=== PATIENT | male | born 1945 | race Caucasian/White ===

== ENCOUNTER 2017-04-20 14:37 | Outpatient (RCR) | payer MEDICARE ==
[2017-04-20 09:03] VITALS: BMI 40.1
[~2017-04-20 14:37] MED LIST: ASPI81TA86 PO; ATOR20TA22 PO; CEFU250T11 PO; CHOL100052 PO; DULERAPT INH; FERR159T PO; FLUT16SP19 NS; FURO-45 PO; GABA-490 PO; GABA-549 PO; IBUP-56 PO; IPRA3AMP10 IH; LOSA50TA74 PO; LOVAZA1PT GT; MONT10TA4 PO; OMEP-218 PO; PENT400T57 PO; POTA-23 PO; POTA20TA94 PO; PRED-1 PO; PREDNISONE; ROPI5TAB20 PO; TAMS0.4C70 PO; ZITHROMAX
[2017-04-24] MEDS ORDERED: LEVO750T44 PO (11:19)
--- NOTE | 2017-04-25 14:10 | Transitional Care Management ---
Assessment Visit Type: Telephone Visit Spoke with: janessa Albright and Jv were in the background on speaker phone Respiratory: WNL Except Respiratory Comment: 04/25 Has O2 on, used bipap last pm, hasn't smoked since arrival home GI: Nutrition: WNL GI Comment: 04/25 "eating l davina a pig" Musculoskeletal, Exercise: WNL Musculoskeletal, Excercise Com: 04/25 wnl for pt Feeling of Well Being: WNL Feeling of Well Being Comment: 04/25 feels great to be home, reports feeling safe at home Scheduled Follow-Up with Chhayai: No (04/25 will call to schedule with Felipa) Community Resources/HHC: 04/25 no HHC available in [facility] Questions for Future PCP Visit: 04/25 results of echo, review that ventricular contraction is weker. he states "its just on a break". reinforced that if it takes a break too long that no work gets done. stress importance of taking resp meds to reduce workload of heart. wanted to use benadryl; suggest melatonin if ok with PCP TCM Discharge Criteria Medication Knowledge: 04/25 using medplanner to assist with tapering prednisone dose; verbalized 2 tab for 3 days then daily for 3 days. has atb. 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 His mobility is quite limited due to SOB and weakness. COPD instructions given (not the book) States he sees Felipa parisi 3 mos and has a city designer from [facility].Review pursed lip breathing for SOB. 04/25 using IS, Bipap and not smoking, taking new meds as rx. denies questions. feels safe and able to report if getting in trouble. has support of family at home Copies to: FELIPA ABURTO GENEVA E Apr 25, 2017 14:10
--- NOTE | 2017-05-01 15:36 | Transitional Care Management ---
Assessment Visit Type: Telephone Visit (05/01 Natalee) Respiratory: WNL Except Respiratory Comment: 04/25 Has O2 on, used bipap last pm, hasn't smoked since arrival home 05/01 Doing Ok still no smoking and using BiPap part of the noc. GI: Nutrition: WNL GI Comment: 04/25 "eating l davina a pig" 05/01 Eating good in fact really good" Constipation?: No Musculoskeletal, Exercise: WNL Musculoskeletal, Excercise Com: 04/25 wnl for pt 05/01 WNL bed to scooter to bed. He gets upset if you try to change that Feeling of Well Being: WNL Feeling of Well Being Comment: 04/25 feels great to be home, reports feeling safe at home 05/01Daughter is moving them to [place] to live with her on Monday as the family feel it is to much work and lifting for her to handle.It is going to be difficult as we have lived here in [place] for 20 some years! Scheduled Follow-Up with Sherry: Yes (05/01 to see Felipa on 05/04 and then they will get a Dr in [place].) Community Resources/HHC: 04/25 no HHC available in [facility] Questions for Future PCP Visit: 04/25 results of echo, review that ventricular contraction is weker. he states "its just on a break". reinforced that if it takes a break too long that no work gets done. stress importance of taking resp meds to reduce workload of heart. wanted to use benadryl; suggest melatonin if ok with PCP TCM Discharge Criteria Medication Knowledge: 04/25 using medplanner to assist with tapering prednisone dose; verbalized 2 tab for 3 days then daily for 3 days. has atb. wanted benadryl to sleep; enc to ask for melatonin as benadryl not recommended for [facility] use 05/01 Went over meds and importance. "Haven/t been to town to get any Meltonin ,will TT Felipa on " Still have a day or so of Pred. finished anbx Disease Management/Concern/Wha: 04/25 COPD Red/Yellow Flags: 04/25 COPD 05/01 Went over Yellow flags and F/u w Transitional Care Comment: 04/20introduce and accept program. His mobility is quite limited due to SOB and weakness. 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 04/25 using IS, Bipap and not smoking, taking new meds as rx. denies questions. feels safe and able to report if getting in trouble. has support of family at home05/01 Doesn't sound real compliant. Hope that imporves when living with family. Copies to: FELIPA ABURTO JOAN May 01, 2017 15:36
--- NOTE | 2017-05-01 15:37 | Transitional Care Management ---
Assessment Respiratory: WNL Except Respiratory Comment: 04/25 Has O2 on, used bipap last pm, hasn't smoked since arrival home 05/01 Doing Ok still no smoking and using BiPap part of the noc. GI: Nutrition: WNL GI Comment: 04/25 "eating l davina a pig" 05/01 Eating good in fact really good" Constipation?: No Musculoskeletal, Exercise: WNL Musculoskeletal, Excercise Com: 04/25 wnl for pt 05/01 WNL bed to scooter to bed. He gets upset if you try to change that Feeling of Well Being: WNL Feeling of Well Being Comment: 04/25 feels great to be home, reports feeling safe at home 05/01Daughter is moving them to [place] to live with her on Monday as the family feel it is to much work and lifting for her to handle.It is going to be difficult as we have lived here in [place] for 20 some years! Scheduled Follow-Up with Chhayai: Yes (05/01 to see Felipa on 05/04 and then they will get a Dr in [place].) Community Resources/HHC: 04/25 no HHC available in [facility] Questions for Future PCP Visit: 04/25 results of echo, review that ventricular contraction is weker. he states "its just on a break". reinforced that if it takes a break too long that no work gets done. stress importance of taking resp meds to reduce workload of heart. wanted to use benadryl; suggest melatonin if ok with PCP TCM Discharge Criteria Medication Knowledge: 04/25 using medplanner to assist with tapering prednisone dose; verbalized 2 tab for 3 days then daily for 3 days. has atb. wanted benadryl to sleep; enc to ask for melatonin as benadryl not recommended for detention use 05/01 Went over meds and importance. "Haven/t been to town to get any Meltonin ,will TT Felipa on " Still have a day or so of Pred. finished anbx Disease Management/Concern/Wha: 04/25 COPD Red/Yellow Flags: 04/25 COPD 05/01 Went over Yellow flags and F/u w Transitional Care Comment: 04/20introduce and accept program. His mobility is quite limited due to SOB and weakness. 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 04/25 using IS, Bipap and not smoking, taking new meds as rx. denies questions. feels safe and able to report if getting in trouble. has support of family at home05/01 Doesn't sound real compliant. Hope that imporves when living with family. 05/01 Will Dc from since moving. CHAS DOWD May 01, 2017 15:37
== END 2018-04-20 ==
LOC: TCM 14:37
PROVIDERS: ATTEND Nurse Practitioner
DX: Z02.9 Encounter for administrative examinations, unspecified (principal)